=== PATIENT | female | born 1980 ===

== ENCOUNTER 2017-08-03 12:13 | Emergency (ER) | payer BC, OTHER ==
--- NOTE | 2017-08-03 15:34 | UC ---
Hand/Wrist HPI - HPI Summary HPI Summary: pt fell 2 weeks ago and then again today causing L wrist pain. no numb/weakness to hand. denies any other injury. - History Of Current Complaint Stated Complaint: LEFT WRIST INJURY Time Seen by Provider: 08/03/17 15:09 Hx Obtained From: Patient ?: No Onset/Duration: Sudden Onset Pain Intensity: 8 Character Of Pain: Aching Aggravating Factor(s): Movement Alleviating Factor(s): Rest - Allergies/Home Medications Allergies/Adverse Reactions: Allergies Allergy/AdvReac Type Severity Reaction Status Date / Time erythromycin base Allergy Vomiting Verified 08/03/17 15:18 Macrolide Antibiotics Allergy Unknown Verified 08/03/17 15:18 Reaction Details Penicillins Allergy See Comment Verified 08/03/17 15:18 Home Medications: Home Medications Cetirizine* [ZyrTEC 10 MG TAB*] 10 mg PO DAILY 08/03/17 [History Confirmed 08/03] Escitalopram Oxalate [Lexapro 20 mg] 20 mg PO DAILY 08/03/17 [History Confirmed 08/03/17] PMH/Surg Hx/FS Hx/Imm Hx Psychological History: Anxiety - Surgical History Surgical History: Yes Surgery Procedure, Year, and Place: T&A. Abd Exp Lap to find IUD. Gallbladder. Hysterectomy (left cervix). Removal of cervix (still has ovaries & tubes) - Family History Known Family History: Positive: None - Social History Occupation: Employed Full-time Lives: With Family Alcohol Use: None Substance Use Type: None Smoking Status (MU): Never Smoked Tobacco - Immunization History Vaccination Up to Date: Yes Review of Systems Constitutional: Negative Skin: Negative Eyes: Negative ENT: Negative Respiratory: Negative Cardiovascular: Negative Gastrointestinal: Negative Genitourinary: Negative Motor: Negative Neurovascular: Negative Musculoskeletal: Other: - pain/swelling L wrist Neurological: Negative Psychological: Negative Is Patient Immunocompromised?: No All Other Systems Reviewed And Are Negative: Yes Physical Exam Triage Information Reviewed: Yes Appearance: Well-Appearing Vital Signs: Initial Vital Signs Temp 98.4 F 08/03/17 15:13 Pulse 91 08/03/17 15:13 Resp 12 08/03/17 15:13 BP 139/88 08/03/17 15:13 Pulse Ox 99 08/03/17 15:13 Vital Signs Reviewed: Yes Eyes: Positive: Conjunctiva Clear ENT: Positive: Normal ENT inspection Neck: Positive: Supple, Nontender, No Lymphadenopathy Respiratory: Positive: Lungs clear, Normal breath sounds Cardiovascular: Positive: RRR, No Murmur Abdomen Description: Positive: Nontender, No Organomegaly, Soft Bowel Sounds: Positive: Present Musculoskeletal: Positive: Other: - LUE: shoulder and elbow atraumatic. L dorsal wrist with mild swelling and tenderness, snuff box mildly tender. hand non tender with s/v/m intact. Hand/Wrist Course/Dx - Course Course Of Treatment: no hx htn. BP made be due to injury. will have recheck with pcp. - Differential Dx/Diagnosis Provider Diagnoses: Avulsion fracture L wrist. Rule out L occult navicular fracture Discharge - Discharge Plan Condition: Stable Disposition: HOME Patient Education Materials: Scaphoid Fracture (ED), Wrist Fracture in Adults ( ED) Referrals: Veda Luna MD [Primary Care Provider] - As Soon As Possible Ricki Patel MD [Medical Doctor] - As Soon As Possible Additional Instructions: FOLLOW UP DR LUNA FOR A REPEAT BLOOD PRESSURE CHECK. KEEP THUMB IN SPLINT AT ALL TIMES UNTIL CLEARED BY ORTHOPEDICS.
--- NOTE | 2017-08-03 15:48 | RAD ---
HISTORY: Subacute trauma, left wrist pain COMPARISONS: None VIEWS: 4, Frontal, lateral, oblique, and scaphoid deviation views of the left wrist FINDINGS: BONE DENSITY: Normal. BONES: There is a small bone fragment along the volar aspect of the distal radius on the lateral view. JOINTS: There is no arthropathy. ALIGNMENT: There is no dislocation. SOFT TISSUES: Unremarkable. OTHER FINDINGS: None. IMPRESSION: SMALL BONE FRAGMENT ALONG THE VOLAR ASPECT OF THE DISTAL RADIUS SEEN ON ONE VIEW ONLY WHICH MAY REFLECT AN AVULSION INJURY.
== END 2017-08-03 16:01 | disposition home or self-care (01) ==
LOC: UCCORT 12:13
DX: S52.502A Unspecified fracture of the lower end of left radius, initial encounter for closed fracture (principal); W19.XXXA Unspecified fall, initial encounter; Y93.9 Activity, unspecified; Y92.9 Unspecified place or not applicable; Z88.1 Allergy status to other antibiotic agents; Z88.0 Allergy status to penicillin; F41.9 Anxiety disorder, unspecified
CPT/HCPCS: 99202; G0463

== ENCOUNTER 2018-06-18 20:52 | Emergency (ER) | payer BC ==
[2018-06-18 21:03] VITALS: BP 137/69
--- NOTE | 2018-06-18 21:47 | UC ---
Hand/Wrist HPI - HPI Summary HPI Summary: 37-year-old woman comes to clinic today with a chief complaint of left wrist pain after a fall one week ago. She fell with an outstretched hand. Had immediate pain in the left wrist. She's been resting it and it overall has been improving however still has some pain. She reports that she's been getting intermittent numbness into the hand. He can happen at various times sometimes he wakes up from sleep with it other times it's in the shower. It then gradually goes back to normal. At this time and has no numbness. There is no weakness no swelling. Denies any elbow or other injury. - History Of Current Complaint Chief Complaint: UCTrauma Stated Complaint: LT WRIST INJURY Time Seen by Provider: 06/18/18 21:03 Pain Intensity: 7 - Allergies/Home Medications Allergies/Adverse Reactions: Allergies Allergy/AdvReac Type Severity Reaction Status Date / Time Adhesive Tape [Paper Tape] Allergy Hives Verified 06/18/18 21:03 erythromycin base Allergy Vomiting Verified 06/18/18 21:03 Macrolide Antibiotics Allergy Unknown Verified 06/18/18 21:03 Reaction Details Penicillins Allergy See Comment Verified 06/18/18 21:03 Home Medications: Home Medications FLUoxetine CAP* [PROzac CAP*] 10 mg PO DAILY 06/18/18 [History Confirmed ] PMH/Surg Hx/FS Hx/Imm Hx Previously Healthy: Yes - Surgical History Surgical History: Yes Surgery Procedure, Year, and Place: T&A. Abd Exp Lap to find IUD. Gallbladder. Hysterectomy (left cervix). Removal of cervix (still has ovaries & tubes) - Family History Known Family History: Positive: None - Social History Alcohol Use: None Substance Use Type: None Smoking Status (MU): Never Smoked Tobacco - Immunization History Vaccination Up to Date: Yes Review of Systems All Other Systems Reviewed And Are Negative: Yes Constitutional: Positive: Negative Skin: Positive: Negative Eyes: Positive: Negative ENT: Positive: Negative Respiratory: Positive: Negative Cardiovascular: Positive: Negative Gastrointestinal: Positive: Negative Motor: Positive: Negative Neurovascular: Positive: Negative Musculoskeletal: Positive: Other: - SEE HPI Neurological: Positive: Numbness Psychological: Positive: Negative Is Patient Immunocompromised?: No Physical Exam Triage Information Reviewed: Yes Appearance: Well-Appearing, No Pain Distress, Well-Nourished Vital Signs: Initial Vital Signs Temp 98.0 F 06/18/18 21:01 Pulse 94 06/18/18 21:01 Resp 16 06/18/18 21:01 BP 137/69 06/18/18 21:01 Pulse Ox 100 06/18/18 21:01 Vital Signs Reviewed: Yes Eye Exam: Normal Eyes: Positive: Conjunctiva Clear Neck exam: Normal Neck: Positive: Supple Respiratory: Positive: No respiratory distress Musculoskeletal: Positive: Other: - Left wrist is tender to palpation on the palmar and dorsal aspects. No specific snuffbox tenderness. Positive Tinel's sign. Normal capillary refill normal pulses. Patient complains of pain more with flexion and extension of the wrist left less so with abduction and abduction. No swelling on exam. Fingers have full range of motion as is the wrist and both have full strength. Elbow exam is normal. Neurological Exam: Normal Neurological: Positive: Alert, Muscle Tone Normal Psychological Exam: Normal Psychological: Positive: Age Appropriate Behavior Skin Exam: Normal Hand/Wrist Course/Dx - Course Course Of Treatment: I discussed the x-rays with the patient I discussed the x- rays with the patient. I do not see any fracture. Radiologist reading pending. Patient's examination and history is consistent with a wrist sprain it 's causing swelling and intermittent carpal tunnel. At this time treating with a cock-up splint. Ice and anti-inflammatories. Follow-up with orthopedics if not completely improved. Patient neurovascularly intact after cockup splint placement by nursing. - Differential Dx/Diagnosis Provider Diagnosis: Carpal tunnel syndrome of left wrist, Left wrist sprain Discharge - Sign-Out/Discharge Documenting (check all that apply): Patient Departure All imaging exams completed and their final reports reviewed: No - Discharge Plan Condition: Stable Disposition: HOME Patient Education Materials: Wrist Sprain (ED) Referrals: Veda Luna MD [Primary Care Provider] - Ricki Patel MD [Medical Doctor] - Additional Instructions: FOLLOW UP WITH ORTHOPEDICS, DR PATEL, IF NOT COMPLETELY IMPROVED. GET RECHECKED FOR ANY WORSENING OF YOUR CONDITION OR QUESTIONS OR CONCERNS. - Billing Disposition and Condition Condition: STABLE Disposition: Home
--- NOTE | 2018-06-19 09:21 | UC ---
- Progress Note Progress Note: xray report left wrist : IMPRESSION: #. Mild soft tissue swelling without additional abnormality. Course/Dx - Diagnoses Provider Diagnoses: Carpal tunnel syndrome of left wrist, Left wrist sprain Discharge - Sign-Out/Discharge Documenting (check all that apply): Patient Departure All imaging exams completed and their final reports reviewed: Yes - Discharge Plan Condition: Stable Disposition: HOME Patient Education Materials: Wrist Sprain (ED) Referrals: Ricki Patel MD [Medical Doctor] - Veda Luna MD [Primary Care Provider] - Additional Instructions: FOLLOW UP WITH ORTHOPEDICS, DR PATEL, IF NOT COMPLETELY IMPROVED. GET RECHECKED FOR ANY WORSENING OF YOUR CONDITION OR QUESTIONS OR CONCERNS. - Billing Disposition and Condition Condition: STABLE Disposition: Home
== END 2018-06-18 21:56 | disposition home or self-care (01) ==
LOC: UCCORT 20:52
DX: G56.02 Carpal tunnel syndrome, left upper limb (principal); S63.502A Unspecified sprain of left wrist, initial encounter; W19.XXXA Unspecified fall, initial encounter; Y92.9 Unspecified place or not applicable; Z88.0 Allergy status to penicillin; Z88.1 Allergy status to other antibiotic agents
CPT/HCPCS: 99212; G0463

== ENCOUNTER → 2018-12-11 17:33 | Emergency (ER) | payer SELFPAY | END | disposition home or self-care (01) | LOC: OHCORT 17:33 | DX: Z00.00 Encounter for general adult medical examination without abnormal findings (principal) ==